=== PATIENT | female | born 1965 | race Caucasian/White ===

== ENCOUNTER 2022-05-16 01:55 | Day surgery (SDC) | payer OTHER, SELFPAY ==
[2022-05-05 13:01] VITALS: BMI 28.3
[2022-05-16 09:24] VITALS: BP 128/84; PULSE 76; RESP 16; TEMP 36; O2SAT 99; BMI 28.5
[2022-05-16] MEDS: LACTATED RINGERS 1,000 ML 150 ML IV CONT (09:34)
--- NOTE | 2022-05-16 09:51 | PM.HPGS ---
History of Present Illness History of Present Illness Consent: Risks, benefits, and alternatives have been discussed and questions answered. Patient agrees to proceed with procedure. Chief complaint: neoplasm screening Narrative: Hilda Mary is a 57 year old female Presents for screening colonoscopy. Patient has a history of adenomatous colon polyp removed from the colon in 2017. patient reports that her current weight appetite bowel movements are normal. Patient denies abdominal pain. She has had no bleeding. Family history noncontributory. Review of Systems Review of Systems: Review of systems noncontributory. [facility] Social History Social History Smoking packs per day: 0.5 Smoking cigarettes per day: 10.0 Years smoked: 12 Smoking pack-years: 6.00 Smoking status: Former smoker Tobacco type: cigarettes Alcohol intake: current Alcohol use details: Rare use Substance use: never Living arrangements: with family Spiritual care concerns: No Meds Home Medications and Allergies Allergies Allergy/AdvReac Type Severity Reaction Status Date / Time codeine AdvReac Unknown Verified 05/16/22 09:22 Vital Signs Vital Signs - 24 hr 05/16/22 09:24 Temperature 96.8 F L Pulse Rate 76 Respiratory Rate 16 Blood Pressure 128/84 Pulse Oximetry 99 Oxygen Delivery Room Air Exam Narrative: Physical exam reveals patient to be alert. Vital signs stable. HEENT exam is unremarkable. Patient is anicteric. Lungs are clear to auscultation and percussion. Heart is without murmur or extra sounds. Abdomen bowel sounds are present soft nontender with no organomegaly. Digital external rectal exam is normal. 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 Plan for surveillance colonoscopy now and consider this 5 year intervals in the future.
--- NOTE | 2022-05-16 10:03 | P.PNAN_ITS ---
Anes - Initial Pre Proc Eval Procedure: Operation Date: 05/16/22 10:30 Proposed Procedures p Screening Colonoscopy - Navin Monroy MD Date/Time: 05/16/22 10:03 Surgeon: Navin Monroy MD Pre Op Diagnosis: neoplasm screening Patient Data Age: 57 Gender: F Height: 1.65 m Weight: 77.7 kg Last Vital Signs Temp 96.8 F L 05/16/22 09:24 Pulse 76 05/16/22 09:24 Resp 16 05/16/22 09:24 BP 128/84 05/16/22 09:24 Pulse Ox 99 05/16/22 09:24 O2 Del Method Room Air 05/16/22 09:24 Allergies Allergy/AdvReac Type Severity Reaction Status Date / Time codeine AdvReac Unknown Verified 05/16/22 09:22 Patient hx anesthesia problems: none Family hx anesthesia problems: none Results Review: All pre-operative results and documents have been reviewed as part of the pre- operative evaluation. [facility] Social History Social History Smoking packs per day: 0.5 Smoking cigarettes per day: 10.0 Years smoked: 12 Smoking pack-years: 6.00 Smoking status: Former smoker Tobacco type: cigarettes Alcohol intake: current Alcohol use details: Rare use Substance use: never Living arrangements: with family Spiritual care concerns: No Anes - Eval Final PreProcedure Day of Procedure 05/16/22 10:03 Patient weight: normal Heart: regular rate and rhythm Lungs: clear to auscultation Airway: Mallampati scale class II Neurological: alert and oriented Last oral intake: >/= 8 hours ASA classification: II Emergent: no Anesthetic plan: proceed Anesthesia type and monitoring: general GIVS and standard monitoring Results Review: All pre-operative results and documents have been reviewed as part of the pre- operative evaluation. Informed Consent: The patient's anesthetic plan and its attendant risks and benefits were discussed with the patient/family/POA. Questions were solicited and answers provided to the satisfaction of the patient/family/POA.
[2022-05-16 10:41] VITALS: BP 98/62; PULSE 69; RESP 14; O2SAT 99
[2022-05-16 10:51] VITALS: BP 105/66; PULSE 69; RESP 14; O2SAT 100
[2022-05-16 11:01] VITALS: BP 113/73; PULSE 68; RESP 18; O2SAT 100
== END 2022-05-16 11:13 | disposition home or self-care (01) ==
PROVIDERS: PCP Internal Medicine; Visit Provider Internal Medicine Gastroenterology
PROC: 0DJD8ZZ Inspection of Lower Intestinal Tract, Via Natural or Artificial Opening Endoscopic (ICD-10-PCS; CPT 45378; principal; 2022-05-16 10:30)
DX: Z12.11 Encounter for screening for malignant neoplasm of colon (principal); D12.2 Benign neoplasm of ascending colon; D12.8 Benign neoplasm of rectum; K57.30 Diverticulosis of large intestine without perforation or abscess without bleeding; Z87.891 Personal history of nicotine dependence
CPT/HCPCS: 45380; 88305; J2704; J7120